=== PATIENT | male | born 1945 | race Two or more races ===

== ENCOUNTER 2023-01-24 10:49 | Inpatient (IN) | payer OTHER ==
[~2023-01-24] VITALS: Ht 167.6 cm; Wt 97.0 kg
[2023-01-24] MEDS ORDERED: LIDOCAINE VISCOUS 2% 15ML UD PO ONE (11:00)
[2023-01-24] MEDS ORDERED: LACTATED RINGER'S 1,000 ML IV ONE (11:00)
[2023-01-24] MEDS ORDERED: ONDANSETRON HCL 4 MG/2 ML VIAL IV ONE (11:00)
[2023-01-24] MEDS ORDERED: FAMOTIDINE (10MG/ML) 2ML VL IV ONE (11:00)
[2023-01-24 11:39] LABS: Basophils # (auto) 0.1 10 ^3/uL (0-0.2); Basophils % (auto) 2.3 % (0.0-2.0); Eosinophils # (auto) 0.4 10 ^3/uL (0-0.8); Eosinophils % (auto) 8.2 % (0.0-7.0); Hematocrit 32.9 % (41.0-53.0); Hemoglobin 10.8 g/dL (13.5-17.5); Lymphocytes # (auto) 0.9 10 ^3/uL (0.4-5.4); Lymphocytes % (auto) 16.7 % (10.0-50.0); Mean Corpuscular Hemoglobin 30.4 pg (28.0-32.0); Mean Corpuscular Hgb Conc. 32.8 g/dL (32.0-36.0); Mean Corpuscular Volume 92.7 fL (80.0-100.0); Monocytes # (auto) 0.4 10 ^3/uL (0-1.3); Neutrophils # (auto) 3.5 10 ^3/uL (1.6-8.6); Neutrophils % (auto) 64.8 % (37.0-80.0); Nucleated Red Blood Cells % 0.1 %; Red Blood Cells 3.55 10^6/uL (4.5-5.90); Red Cell Distribution Width 18.4 % (11.8-14.3); White Blood Cell 5.4 10^3/uL (4.4-10.8)
[2023-01-24 11:58] LABS: Albumin 2.4 g/dL (3.4-5.0); Calcium 8.4 mg/dL (8.5-10.1)
[2023-01-24 12:03] LABS: BUN/Creatinine Ratio 10.8 (10.0-20.0); Bilirubin, Total 0.8 mg/dL (0.2-1.0); Total Protein 6.9 g/dL (6.4-8.2)
[2023-01-24] MEDS ORDERED: HYDROcodone-ACET 5/325MG TAB PO ONE (14:00)
[2023-01-24] MEDS ORDERED: cefTRIAXone 1GM/50ML D5W 50 ML IV ONE (16:00)
[2023-01-24] MEDS ORDERED: SODIUM CHLORIDE 0.9% 1,000 ML IV SCH (16:00)
[2023-01-24] MEDS ORDERED: metroNIDAZOLE 500MG/100ML 100 ML IV ONE (16:00)
[2023-01-24] MEDS ORDERED: PANTOPRAZOLE 40 MG/10 ML VIAL INJ IV ONE (16:00)
[2023-01-24] MEDS ORDERED: ATOR20TA50 PO (16:01)
[2023-01-24] MEDS ORDERED: MET500T PO (16:01)
[2023-01-24] MEDS ORDERED: GABA300C10 PO (16:01)
[2023-01-24] MEDS ORDERED: METF-370 PO (16:01)
[2023-01-24] MEDS ORDERED: CEFU500T43 PO (16:01)
[2023-01-24] MEDS ORDERED: TRAZ50TA2 PO (16:01)
[2023-01-24] MEDS ORDERED: TAMS0.4C36 PO (16:01)
[2023-01-24] MEDS ORDERED: FURO40TA4 PO (16:01)
[2023-01-24] MEDS ORDERED: LISI-716 PO (16:01)
[2023-01-24] MEDS ORDERED: DEXTROSE (50%) 50ML SYRG IV PRN (16:15)
[2023-01-24 16:45] LABS: Cholesterol 61 mg/dL (< 200)
[2023-01-24 16:47] LABS: HDL Cholesterol 26 mg/dL (40-59); LDL Cholesterol 37 mg/dL (< 100); Triglycerides 62 mg/dL (< 150)
[2023-01-24] MEDS: InsuLIN REG 1unit/0.01ml Soln (100units/ml) SC SCH ×2 (17:00→22:00)
[2023-01-24] MEDS: ACCU-CHEK COMFORT CURVE STRIP VI SCH ×2 (17:28→22:08)
[2023-01-24] MEDS: metroNIDAZOLE 500MG/100ML 100 ML IV SCH (22:13)
[2023-01-24] MEDS: GABAPENTIN 300 MG CAP PO SCH (22:14)
[2023-01-24] MEDS: metFORMIN HYDROCHLORIDE 500 MG TAB PO SCH (22:18)
[2023-01-24 22:56] LABS: Urine Bacteria NONE SEEN /hpf (None Seen); Urine Blood Negative /uL (Negative); Urine Hyaline Cast FEW /lpf (0 - 2); Urine Mucus FEW (None Seen); Urine Specific Gravity 1.018 (1.001-1.035); Urine WBC 5 /hpf (0 - 3)
[2023-01-25 05:17] LABS: Basophils # (auto) 0.1 10 ^3/uL (0-0.2); Basophils % (auto) 1.2 % (0.0-2.0); Eosinophils # (auto) 0.5 10 ^3/uL (0-0.8); Eosinophils % (auto) 12.6 % (0.0-7.0); Hematocrit 28.4 % (41.0-53.0); Hemoglobin 9.6 g/dL (13.5-17.5); Lymphocytes # (auto) 0.7 10 ^3/uL (0.4-5.4); Lymphocytes % (auto) 17.2 % (10.0-50.0); Mean Corpuscular Hemoglobin 30.8 pg (28.0-32.0); Mean Corpuscular Hgb Conc. 33.9 g/dL (32.0-36.0); Mean Corpuscular Volume 90.9 fL (80.0-100.0); Monocytes # (auto) 0.4 10 ^3/uL (0-1.3); Monocytes % (auto) 9.7 % (0.0-12.0); Neutrophils # (auto) 2.5 10 ^3/uL (1.6-8.6); Neutrophils % (auto) 59.3 % (37.0-80.0); Nucleated Red Blood Cells % 0.1 %; Red Blood Cells 3.13 10^6/uL (4.5-5.90); Red Cell Distribution Width 18.1 % (11.8-14.3); White Blood Cell 4.3 10^3/uL (4.4-10.8)
[2023-01-25 05:33] LABS: Albumin 2.1 g/dL (3.4-5.0)
[2023-01-25 05:37] LABS: BUN/Creatinine Ratio 10.8 (10.0-20.0); Bilirubin, Total 0.6 mg/dL (0.2-1.0)
[2023-01-25] MEDS: metroNIDAZOLE 500MG/100ML 100 ML IV SCH ×3 (06:04→23:17)
[2023-01-25] MEDS: GABAPENTIN 300 MG CAP PO SCH ×3 (06:04→22:06)
[2023-01-25 06:43] VITALS: BP 128/72
[2023-01-25] MEDS: InsuLIN REG 1unit/0.01ml Soln (100units/ml) SC SCH ×4 (07:00→22:00)
[2023-01-25] MEDS: ACCU-CHEK COMFORT CURVE STRIP VI SCH ×4 (07:02→22:06)
[2023-01-25 08:59] VITALS: BP 128/72
[2023-01-25] MEDS ORDERED: cefTRIAXone 1GM/50ML D5W 50 ML IV SCH (09:00)
[2023-01-25] MEDS: TAMSULOSIN HYDROCHLORIDE 0.4 MG CAP PO SCH (09:19)
[2023-01-25] MEDS: metFORMIN HYDROCHLORIDE 500 MG TAB PO SCH ×2 (09:19→22:05)
[2023-01-25] MEDS: FUROSEMIDE 20 MG/2 ML VIAL IV SCH (09:20)
[2023-01-25] MEDS: ATORVASTATIN 20 MG TAB PO SCH (09:20)
[2023-01-25] MEDS: LISINOPRIL 10 MG TAB PO SCH (09:20)
[2023-01-25] MEDS ORDERED: ENOXAPARIN SOD 40 MG/0.4 ML SYRINGE SC SCH (10:00)
[2023-01-25] MEDS ORDERED: PANTOPRAZOLE 40 MG/10 ML VIAL INJ IV SCH (10:00)
[2023-01-25 12:41] VITALS: BP 128/65
[2023-01-25] MEDS ORDERED: ACETAMINOPHEN 325 MG TAB PO PRN (14:00)
[2023-01-25 16:49] VITALS: BP 137/61
[2023-01-25] MEDS ORDERED: ACETAMINOPHEN 500 MG TAB PO ONE (17:00)
[2023-01-25] MEDS ORDERED: levoFLOXacin 500MG 100 ML IV ONE (20:00)
[2023-01-25 21:13] LABS: Hematocrit 26.5 % (41.0-53.0); Hemoglobin 8.6 g/dL (13.5-17.5)
[2023-01-25 22:00] VITALS: BP 142/78
[2023-01-25] MEDS: PANTOPRAZOLE 40 MG/10 ML VIAL INJ IV SCH (22:05)
[2023-01-26 02:09] LABS: Hematocrit 27.4 % (41.0-53.0)
[2023-01-26 05:00] VITALS: BP 129/76
[2023-01-26] MEDS: GABAPENTIN 300 MG CAP PO SCH ×3 (05:42→21:54)
[2023-01-26] MEDS: metroNIDAZOLE 500MG/100ML 100 ML IV SCH ×3 (05:42→21:53)
[2023-01-26] MEDS: ACCU-CHEK COMFORT CURVE STRIP VI SCH ×4 (06:44→21:54)
[2023-01-26] MEDS: InsuLIN REG 1unit/0.01ml Soln (100units/ml) SC SCH ×4 (06:44→21:54)
[2023-01-26 07:43] LABS: Basophils # (auto) 0 10 ^3/uL (0-0.2); Basophils % (auto) 0.7 % (0.0-2.0); Eosinophils # (auto) 0.4 10 ^3/uL (0-0.8); Hematocrit 27.2 % (41.0-53.0); Lymphocytes # (auto) 0.5 10 ^3/uL (0.4-5.4); Lymphocytes % (auto) 14.4 % (10.0-50.0); Mean Corpuscular Hemoglobin 30.6 pg (28.0-32.0); Mean Corpuscular Hgb Conc. 33.1 g/dL (32.0-36.0); Mean Corpuscular Volume 92.4 fL (80.0-100.0); Monocytes # (auto) 0.3 10 ^3/uL (0-1.3); Monocytes % (auto) 8.4 % (0.0-12.0); Neutrophils # (auto) 2.4 10 ^3/uL (1.6-8.6); Neutrophils % (auto) 65.5 % (37.0-80.0); Red Blood Cells 2.95 10^6/uL (4.5-5.90); Red Cell Distribution Width 18.3 % (11.8-14.3); White Blood Cell 3.7 10^3/uL (4.4-10.8)
[2023-01-26 07:57] LABS: INR 1.38 (0.9-1.15)
[2023-01-26 08:10] LABS: Albumin 1.9 g/dL (3.4-5.0); Calcium 7.7 mg/dL (8.5-10.1); Potassium 4.2 mmol/L (3.5-5.1)
[2023-01-26 08:15] LABS: BUN/Creatinine Ratio 7.2 (10.0-20.0); Bilirubin, Total 0.5 mg/dL (0.2-1.0); Total Protein 5.3 g/dL (6.4-8.2)
[2023-01-26 09:00] VITALS: BP 129/67
[2023-01-26] MEDS: levoFLOXacin 500MG 100 ML IV SCH (10:13)
[2023-01-26] MEDS: TAMSULOSIN HYDROCHLORIDE 0.4 MG CAP PO SCH (10:14)
[2023-01-26] MEDS: FUROSEMIDE 20 MG/2 ML VIAL IV SCH (10:14)
[2023-01-26] MEDS: PANTOPRAZOLE 40 MG/10 ML VIAL INJ IV SCH ×2 (10:14→21:53)
[2023-01-26] MEDS: LISINOPRIL 10 MG TAB PO SCH (10:15)
[2023-01-26] MEDS: metFORMIN HYDROCHLORIDE 500 MG TAB PO SCH ×2 (10:15→21:54)
[2023-01-26] MEDS: ATORVASTATIN 20 MG TAB PO SCH (10:15)
[2023-01-26 13:00] VITALS: BP 126/66
[2023-01-26 16:54] VITALS: BP 95/48
[2023-01-26] MEDS: ACETAMINOPHEN 500 MG TAB PO PRN (19:52)
[2023-01-26 22:00] VITALS: BP 103/46
[2023-01-27] MEDS: ACETAMINOPHEN 500 MG TAB PO PRN ×2 (04:53→23:01)
[2023-01-27 05:00] VITALS: BP 115/60
[2023-01-27] MEDS: GABAPENTIN 300 MG CAP PO SCH ×3 (06:04→21:47)
[2023-01-27] MEDS: metroNIDAZOLE 500MG/100ML 100 ML IV SCH ×3 (06:04→21:46)
[2023-01-27] MEDS: ACCU-CHEK COMFORT CURVE STRIP VI SCH ×4 (06:05→21:47)
[2023-01-27] MEDS: InsuLIN REG 1unit/0.01ml Soln (100units/ml) SC SCH ×4 (06:05→21:47)
[2023-01-27 08:43] VITALS: BP 109/57
[2023-01-27] MEDS: levoFLOXacin 500MG 100 ML IV SCH (09:45)
[2023-01-27] MEDS: TAMSULOSIN HYDROCHLORIDE 0.4 MG CAP PO SCH (09:45)
[2023-01-27] MEDS: FUROSEMIDE 20 MG/2 ML VIAL IV SCH (09:45)
[2023-01-27] MEDS: PANTOPRAZOLE 40 MG/10 ML VIAL INJ IV SCH ×2 (09:45→21:46)
[2023-01-27] MEDS: ATORVASTATIN 20 MG TAB PO SCH (09:46)
[2023-01-27] MEDS: LISINOPRIL 10 MG TAB PO SCH (09:46)
[2023-01-27] MEDS: metFORMIN HYDROCHLORIDE 500 MG TAB PO SCH ×2 (09:46→21:47)
[2023-01-27 12:43] VITALS: BP 105/64
[2023-01-27 17:00] VITALS: BP 109/54
[2023-01-27 22:00] VITALS: BP 110/61
[2023-01-28 05:00] VITALS: BP 100/59
[2023-01-28] MEDS: metroNIDAZOLE 500MG/100ML 100 ML IV SCH ×2 (06:08→13:59)
[2023-01-28] MEDS: GABAPENTIN 300 MG CAP PO SCH ×2 (06:08→13:59)
[2023-01-28] MEDS: ACCU-CHEK COMFORT CURVE STRIP VI SCH ×3 (06:09→17:00)
[2023-01-28] MEDS: InsuLIN REG 1unit/0.01ml Soln (100units/ml) SC SCH ×3 (06:09→17:00)
[2023-01-28 08:00] VITALS: BP 121/58
[2023-01-28] MEDS: ACETAMINOPHEN 500 MG TAB PO PRN (08:03)
[2023-01-28] MEDS: FUROSEMIDE 20 MG/2 ML VIAL IV SCH (10:00)
[2023-01-28] MEDS: levoFLOXacin 500MG 100 ML IV SCH (10:00)
[2023-01-28] MEDS: PANTOPRAZOLE 40 MG/10 ML VIAL INJ IV SCH (10:00)
[2023-01-28] MEDS: ATORVASTATIN 20 MG TAB PO SCH (10:01)
[2023-01-28] MEDS: LISINOPRIL 10 MG TAB PO SCH (10:01)
[2023-01-28] MEDS: metFORMIN HYDROCHLORIDE 500 MG TAB PO SCH (10:01)
[2023-01-28] MEDS: TAMSULOSIN HYDROCHLORIDE 0.4 MG CAP PO SCH (10:01)
[2023-01-28 11:55] VITALS: BP 98/64
[2023-01-28] MEDS ORDERED: CEPH-510 PO (14:19)
[2023-01-28] MEDS ORDERED: LEVO500T31 PO (14:19)
[2023-01-28 16:00] VITALS: BP 96/58
[2023-01-28 16:21] VITALS: BP 96/58
== END 2023-01-28 18:50 | disposition home or self-care (01) | DRG 444 ==
LOC: EDBD 10:49 → ER 10:49 → OVERFLOW 15:59 → CENTRAL 01-25 04:23
PROVIDERS: ADMIT Nurse Practitioner Family; ATTEND Internal Medicine
DX: K80.10 Calculus of gallbladder with chronic cholecystitis without obstruction (principal); J18.9 Pneumonia, unspecified organism; D61.818 Other pancytopenia; E46 Unspecified protein-calorie malnutrition; K76.6 Portal hypertension; L03.115 Cellulitis of right lower limb; K70.31 Alcoholic cirrhosis of liver with ascites; K52.9 Noninfective gastroenteritis and colitis, unspecified; E11.9 Type 2 diabetes mellitus without complications; Z20.822 Contact with and (suspected) exposure to COVID-19; E78.5 Hyperlipidemia, unspecified; E66.01 Morbid (severe) obesity due to excess calories; E86.0 Dehydration; I10 Essential (primary) hypertension; N30.90 Cystitis, unspecified without hematuria; N40.0 Benign prostatic hyperplasia without lower urinary tract symptoms; N20.0 Calculus of kidney; D64.9 Anemia, unspecified; G89.29 Other chronic pain; Z68.34 Body mass index [BMI] 34.0-34.9, adult; Z82.5 Family history of asthma and other chronic lower respiratory diseases; Z82.3 Family history of stroke; Z86.73 Personal history of transient ischemic attack (TIA), and cerebral infarction without residual deficits; I86.8 Varicose veins of other specified sites
CPT/HCPCS: 36415; 71045; 73700; 74176; 76705; 80053; 80061; 81001; 82140; 82150; 82270; 82962; 83036; 83690; 83880; 83986; 84443; 84484; 85014; 85018; 85025; 85048; 85610; 87045; 87070; 87081; 87086; 87177; 87205; 87426; 87427; 87493; 93971; 96361; 96374; 96375; 97110; 97116; 97163; 97530; C9113; G0378; J0696; J1815; J1956; J2405; J3490